=== PATIENT | female | born 1980 | race Caucasian/White ===

== ENCOUNTER 2018-03-16 18:01 | Emergency (ER) | payer OTHER ==
--- NOTE | 2018-03-16 18:17 | PDOC ---
Rapid Medical Evaluation Time Seen by Provider: 03/16/18 18:15 Medical Evaluation: Allergies Allergy/AdvReac Type Severity Reaction Status Date / Time No Known Allergies Allergy Verified 07/09/15 14:56 I have performed a brief in-person evaluation of this patient. The patient presents with a chief complaint of: 2 weeks ago . constipated since yesterday. bleeding hemorrhoids Pertinent physical exam findings: did not evaluate I have ordered the following: nothing The patient will proceed to the ED for further evaluation. Discharge Disposition - Diagnosis Hemorrhoids - Referrals Referrals: Kenya Golden [Primary Care Provider] - - Patient Instructions - Post Discharge Activity
[2018-03-16 18:20] VITALS: BP 129/89; PULSE 87; TEMP 97.9; BMI 35.1
--- NOTE | 2018-03-16 19:52 | PDOC ---
History of Present Illness - General Chief Complaint: Bleeding from Anus Stated Complaint: Vaginal Bleeding Time Seen by Provider: 03/16/18 18:15 - History of Present Illness Initial Comments: 03/16/18 19:50 37-year-old female 2 weeks status post section because of eclampsia, presents for evaluation of hemorrhoids times the last 2 days making bowel movements painful. She has no systemic symptoms. She is breast-feeding. Past History - Past Medical History Allergies/Adverse Reactions: Allergies Allergy/AdvReac Type Severity Reaction Status Date / Time No Known Allergies Allergy Verified 03/16/18 18:16 Home Medications: Ambulatory Orders Docusate Sodium [Colace] 100 mg PO BID #30 capsule 03/16/18 Hydrocortisone Acetate [Anusol Hc Suppository -] 25 mg RC BID #28 supp.rect COPD: No - Immunization History Immunization Up to Date: Yes - Suicide/Smoking/Psychosocial Hx Smoking Status: No Smoking History: Never smoked Number of Cigarettes Smoked Daily: 0 Information on smoking cessation initiated: No Hx Alcohol Use: No Drug/Substance Use Hx: No Substance Use Type: None Review of Systems - Review of Systems ABD/GI: Yes: See HPI, Rectal Bleeding *Physical Exam - Vital Signs Last Vital Signs Temp Pulse Resp BP Pulse Ox 97.9 F 87 16 129/89 98 03/16/18 18:17 03/16/18 18:17 03/16/18 18:17 03/16/18 18:17 03/16/18 18:17 - Physical Exam Comments: 03/16/18 19:50 HEAD: NC/AT EYES: Conjuntiva clear There are multiple large hemorrhoids about the rectum no visible bleeding exquisitely tender, she is unable to tolerated digital rectal examination MS: Full ROM in all joints without edema NEUROLOGIC: No gross sensory or motor deficits, NVID SKIN: Normal color and temperature no lesions or rashes *DC/Admit/Observation/Transfer Diagnosis at time of Disposition: Hemorrhoids - Discharge Dispostion Disposition: HOME Condition at time of disposition: Stable Decision to Admit order: No - Prescriptions Prescriptions: Docusate Sodium [Colace] 100 mg PO BID #30 capsule Hydrocortisone Acetate [Anusol Hc Suppository -] 25 mg RC BID #28 supp.rect - Referrals Referrals: Kenya Golden [Primary Care Provider] - - Patient Instructions Printed Discharge Instructions: Hemorrhoids Additional Instructions: Please take the stool softener and use the suppositories as directed. Return to the emergency room should symptoms worsen. It's very important. Follow-up with the GI doctor tomorrow. It's also very important she did not breast feed into you are cleared by her CAB[employer] because you're on medication neck and arm your baby at this point - Post Discharge Activity
== END 2018-03-16 20:14 | disposition home or self-care (01) ==
LOC: JERFT 18:01
DX: O90.89 Other complications of the puerperium, not elsewhere classified (principal); O87.2 Hemorrhoids in the puerperium
CPT/HCPCS: 99281-25